=== PATIENT | female | born 1950 | race Caucasian/White ===

== ENCOUNTER 2020-08-06 08:47 | Day surgery (SDC) | payer BC, MEDICARE ==
[2020-08-06] MEDS ORDERED: Dextrose 5%-Lactated Ringers 1,000 ML IV SCH (09:30)
[2020-08-06] MEDS ORDERED: fentaNYL 100 MCG/2 ML SDV ONE (10:09)
[2020-08-06] MEDS ORDERED: Midazolam 1 MG/ML 2 ML SDV ONE (10:10)
[2020-08-06] MEDS ORDERED: Propofol 200 MG/20 ML SDV ONE (10:10)
--- NOTE | 2020-08-06 12:11 | US ---
[facility]domen [facility] CLINICAL HISTORY: Right upper postprandial quadrant pain COMPARISON: None. TECHNIQUE: Real-time images were obtained through the right upper quadrant. FINDINGS: The liver is free of mass or biliary dilatation. There is increased hepatic parenchymal echogenicity. The gallbladder contains at least one gallstone measuring 2 cm. The common bile duct measures 5 mm. The pancreas is partially obscured. No masses seen. The right kidney contains a 1.9 x 1.8 x 2.0 cm anechoic focus consistent with a cyst The IVC is normal. IMPRESSION: Cholelithiasis with no biliary dilatation 2 cm right renal cyst
--- NOTE | 2020-08-12 17:27 | OR ---
DATE OF PROCEDURE: 08/06/2020 SURGEON: Sammy Garcia MD PREOPERATIVE DIAGNOSIS: Anorectal pain with intermittent bleeding. POSTOPERATIVE DIAGNOSIS: Chronic anal fissure. OPERATIVE PROCEDURE: Anoscopy with anesthesia. ANESTHESIA: IV sedation. INDICATION FOR PROCEDURE: A 69-year-old female presenting with several week history of chronic anal pain, particularly with bowel movements and associated with some intermittent bleeding. Plan is to proceed with a diagnostic anoscopy. Potential risks including further pain and bleeding were reviewed, and the patient wishes to proceed. DETAILS OF PROCEDURE: The patient was taken to the operating room, placed in a left lateral decubitus position. IV sedation was administered, after which the initial digital rectal exam was performed. This confirmed anal fissure. This was able to be visualized on both buttocks as well as with the anoscope. This was quite thickened and did have an attached sentinel tag. This was located directly posteriorly, typical for anal fissure. This appeared to be quite chronic in nature and unlikely to heal with medical management and procedure then concluded. Situation was discussed with the patient, and she will tentatively proceed with an anal fissurectomy and internal sphincterotomy next week. She does have symptomatic gallstones, I think it would be best to get the anal fissure treated first and then once that is healed up, proceed with a cholecystectomy. Sammy Garcia MD /[id number]
== END 2020-08-06 12:35 | disposition home or self-care (01) ==
LOC: JP.SDS 08:47
PROVIDERS: ATTEND Surgery
DX: K60.1 Chronic anal fissure (principal); G47.33 Obstructive sleep apnea (adult) (pediatric); I10 Essential (primary) hypertension; E66.9 Obesity, unspecified; Z68.37 Body mass index [BMI] 37.0-37.9, adult
CPT/HCPCS: 46600; 76705; J2250; J2704; J3010; J7121

== ENCOUNTER 2020-10-09 05:40 | Day surgery (SDC) | payer MEDICARE ==
[~2020-10-09 05:40] MED LIST: Acetaminophen 500 MG Tab PO ONE
[2020-10-09] MEDS ORDERED: Albuterol/Ipratropium 3.0-0.5 MG/3 ML Neb Soln NEB ONE (06:30)
[2020-10-09] MEDS ORDERED: Bupivacaine 0.5%/EPINEPHrine 1:200,000 50 ML MDV ONE (06:41)
[2020-10-09] MEDS: Dextrose 5%-Lactated Ringers 1,000 ML IV SCH ×2 (06:47→20:50)
[2020-10-09] MEDS ORDERED: Succinylcholine 200 MG/10 ML MDV ONE (07:14)
[2020-10-09] MEDS ORDERED: Neostigmine Methylsulfate 1 MG/ML 5 ML Syringe ONE (07:14)
[2020-10-09] MEDS ORDERED: Dexamethasone 4 MG/ML SDV ONE (07:14)
[2020-10-09] MEDS ORDERED: Ondansetron 4 MG/2 ML SDV ONE (07:14)
[2020-10-09] MEDS ORDERED: Rocuronium 50 MG/5 ML Vial ONE (07:14)
[2020-10-09] MEDS ORDERED: fentaNYL 250 MCG/5 ML SDV ONE (07:14)
[2020-10-09] MEDS ORDERED: Propofol 200 MG/20 ML SDV ONE (07:14)
[2020-10-09] MEDS ORDERED: Glycopyrrolate 0.2 MG/ML 5 ML MDV ONE (07:14)
[2020-10-09] MEDS ORDERED: cefOXitin 2 GM in Sodium Chloride 0.9% 50 ML IV ONE (07:15)
[2020-10-09] MEDS ORDERED: Ketamine 50 MG in Sodium Chloride 0.9% 49.5 ML IV SCH (07:30)
[2020-10-09] MEDS ORDERED: Ropivacaine 50 ML, dexAMETHasone 8 MG, EPINEPHrine 0.4 MG, Sodium Chloride 0.9% 27.6 ML NERVRT SCH ×4 (07:30)
[2020-10-09] MEDS ORDERED: Ketamine 500 MG/5 ML MDV IV SCH (07:30)
[2020-10-09] MEDS ORDERED: fentaNYL 100 MCG/2 ML SDV ONE (07:59)
[2020-10-09] MEDS ORDERED: hydrOXYzine HCL 100 MG/2 ML SDV IM ONE (09:00)
[2020-10-09] MEDS ORDERED: Albuterol/Ipratropium 3.0-0.5 MG/3 ML Neb Soln INH PRN (09:51)
[2020-10-09] MEDS ORDERED: Benzonatate 100 MG Cap PO PRN (09:53)
[2020-10-09] MEDS ORDERED: Ondansetron 4 MG/2 ML SDV IVPUSH PRN (10:00)
[2020-10-09] MEDS ORDERED: HYDROmorphone 0.5 MG/0.5 ML Syringe IVPUSH PRN (10:00)
[2020-10-09] MEDS ORDERED: HYDROmorphone 1 MG/ML Syringe IV PRN (10:00)
[2020-10-09] MEDS ORDERED: Sugammadex Sodium 200 MG/2 ML VIAL ONE (11:12)
[2020-10-09] MEDS: Albuterol/Ipratropium 3.0-0.5 MG/3 ML Neb Soln INH SCH ×3 (11:27→20:54)
[2020-10-09] MEDS ORDERED: Pantoprazole 40 MG Vial IVPUSH SCH (12:00)
[2020-10-09] MEDS ORDERED: Docusate Sodium 100 MG Cap PO ONE (12:00)
[2020-10-09] MEDS: Acetaminophen/HYDROcodone 325-5 MG Tab PO PRN ×3 (13:45→22:18)
[2020-10-09] MEDS: cefOXitin 2 GM in Sodium Chloride 0.9% 50 ML IV SCH ×2 (13:46→19:31)
[2020-10-09] MEDS ORDERED: Losartan 50 MG Tab PO SCH (21:00)
[2020-10-10] MEDS: cefOXitin 2 GM in Sodium Chloride 0.9% 50 ML IV SCH (02:35)
[2020-10-10] MEDS: Acetaminophen/HYDROcodone 325-5 MG Tab PO PRN ×2 (02:48→06:42)
[2020-10-10] MEDS: Albuterol/Ipratropium 3.0-0.5 MG/3 ML Neb Soln INH SCH (08:10)
--- NOTE | 2020-10-11 13:38 | DISCH ---
FINAL DIAGNOSES: 1. Chronic cholecystitis and cholelithiasis. 2. Mildly nodular liver with biopsy pending. 3. History of anal fissure. 4. Obstructive sleep apnea. 5. History of hypertension. 6. Gastroesophageal reflux disease. OPERATIVE PROCEDURE: Done on 10/09, diagnostic laparoscopy with: 1. Laparoscopic cholecystectomy. 2. Needle liver biopsy. SUMMARY: This is a 69-year-old female presenting with recurrent biliary colic and known cholelithiasis. On the day of admission, the patient underwent a laparoscopic cholecystectomy. She had mildly nodular liver and those biopsies were obtained as well and are pending. Postoperatively, she has had no significant problems. She is tolerating a diet and presently is taking [place] 5/325, 1 to 2 tabs q.6 hours p.r.n. . Follow up with Adri Witt at [facility] on 10/19/2020. /[id number]
--- NOTE | 2020-10-18 10:38 | OR ---
DATE OF PROCEDURE: 10/09/2020 SURGEON: Sammy Garcia MD PREOPERATIVE DIAGNOSIS: Chronic cholecystitis and cholelithiasis. POSTOPERATIVE DIAGNOSES: 1. Chronic cholecystitis and cholelithiasis. 2. Finely nodular moderately enlarged liver. OPERATIVE PROCEDURES: Diagnostic laparoscopy with: 1. Laparoscopic cholecystectomy (75880). 2. Needle biopsy of right lobe of liver (22538). ANESTHESIA: General. FRONT END MANAGER: Adri Witt PA-C INDICATIONS FOR PROCEDURE: This is a 69-year-old female presenting with recurrent episodes of biliary colic with associated cholelithiasis. Plan is to proceed with laparoscopic cholecystectomy. Potential risks of the procedure including bleeding, infection, injury to underlying viscera such as common bile duct, possible migration of stones into the common bile duct requiring additional procedures for correction, possibility of persistent symptoms postoperatively, and lastly remote possibility of cardiopulmonary, septic, or hemorrhagic complications leading to were discussed, and the patient wishes to proceed. DETAILS OF PROCEDURE: The patient was taken to the operating room after general endotracheal anesthesia was induced. The abdomen was prepped and draped. A transverse epigastric incision was made and peritoneal cavity entered under direct vision with an Optiview trocar, inflated to 15 mmHg pressure or CO2. Laparoscope was then reinserted. No underlying trocar insertion site injuries were seen. There were quite dense adhesions in the periumbilical area and we elected then to bring the camera port to the right of the umbilicus in a clear plane and that level the trocar was placed under direct vision. One additional 5 mm trocar in the right subcostal area was then placed and the upper abdomen examined. The patient was noted to have some moderately enlarged finely nodular liver. There did not appear to be any evidence of portal hypertension. liver pathology, 2 Darryn-Cut biopsies were obtained from the right lobe of the liver. Minimal bleeding from the biopsy sites was controlled with electrocautery. The gallbladder was thick-walled and somewhat pulido in appearance consistent with chronic cholecystitis. The gallbladder was retracted anteriorly and laterally. Some omental adhesions taken down with Harmonic Scalpel, after which dissection continued down around the gallbladder neck and cystic duct junction. Once that area was well-delineated along with the adjacent cystic artery, both structures were clipped 3 times proximally and once distally and divided. The gallbladder was then dissected off the gallbladder bed with Harmonic scalpel and delivered through the epigastric trocar site. The patient had some sludge-like material within the gallbladder and a single olive-sized stone which was given to the patient. The area of dissection was inspected. No bleeding or bile leaks were seen. Drain was felt not to be necessary. Trocars were then sequentially removed and the fascia closed with 0 Vicryl stitch and the skin with 4-0 Vicryl subcuticular stitch. Prior to closure, bilateral transversus abdominis plane blocks were placed as well, and the patient was taken to the recovery room in satisfactory condition. Physician photo studio assistant, Adri Witt, played an essential role in assisting in this case helping to position the patient, retract structures as needed, as well as suturing and cutting sutures when indicated. Her presence improved patient safety and decreased operative time. Sammy Garcia MD /[id number]
== END 2020-10-10 09:15 | disposition home or self-care (01) ==
LOC: JP.SDS 05:40 → JP.2SS 08:20 → JP.SDS 10-10 09:15
PROVIDERS: ATTEND Surgery
DX: K80.10 Calculus of gallbladder with chronic cholecystitis without obstruction (principal); K73.9 Chronic hepatitis, unspecified; K76.0 Fatty (change of) liver, not elsewhere classified; K74.00 Hepatic fibrosis, unspecified; G47.33 Obstructive sleep apnea (adult) (pediatric); I10 Essential (primary) hypertension; K21.9 Gastro-esophageal reflux disease without esophagitis; G89.29 Other chronic pain; E66.9 Obesity, unspecified; Z79.899 Other long term (current) drug therapy; Z88.8 Allergy status to other drugs, medicaments and biological substances; Z88.1 Allergy status to other antibiotic agents; Z88.2 Allergy status to sulfonamides; Z91.040 Latex allergy status; Z88.0 Allergy status to penicillin; Z68.39 Body mass index [BMI] 39.0-39.9, adult
CPT/HCPCS: 36415; 80053; 83735; 83880; 84100; 85027; 88304; 88307; 88313; 94640; A9270-GY; C9113; J0171; J0330; J0694; J1100; J2405; J2704; J2710; J2795; J3010; J3410; J3490; J7121; J7620-GY

== ENCOUNTER 2023-01-19 07:29 | Day surgery (SDC) | payer MEDICARE ==
[2023-01-19] MEDS ORDERED: Dextrose 5%-Lactated Ringers 1,000 ML IV SCH (08:00)
[2023-01-19] MEDS ORDERED: fentaNYL 100 MCG/2 ML SDV ONE (11:04)
[2023-01-19] MEDS ORDERED: Propofol 200 MG/20 ML SDV ONE (11:04)
[2023-01-19] MEDS ORDERED: Midazolam 1 MG/ML 2 ML SDV ONE (11:04)
== END 2023-01-19 13:00 | disposition home or self-care (01) ==
LOC: JP.SDS 07:29
PROVIDERS: ATTEND Surgery
DX: D12.5 Benign neoplasm of sigmoid colon (principal); K62.1 Rectal polyp; I10 Essential (primary) hypertension; G47.33 Obstructive sleep apnea (adult) (pediatric); J45.909 Unspecified asthma, uncomplicated
CPT/HCPCS: 45380; 45385; 88305; J2250; J2704; J3010; J7121